=== PATIENT | female | born 1965 | race American Indian/Alaskan Native ===

== ENCOUNTER 2020-05-07 15:44 | Emergency (ER) | payer SELFPAY ==
--- NOTE | 2020-05-07 18:28 | Event Note ---
ED Screening Note ED Screening Note: pt presents with left flank pain that began earlier today states she does lift heavy at work she denies any n/v/d, CP, SOB, leg swelling hx of HTN and has not taken medication in 2 months allergy: penicillin went through menopause This initial assessment/diagnostic orders/clinical plan/treatment(s) is/are subject to change based on patients health status, clinical progression and re- assessment by fellow clinical providers in the ED. Further treatment and workup at subsequent clinical providers discretion. Patient/guardian urged not to elope from the ED as their condition may be serious if not clinically assessed and managed. Initial orders include: labs, CT, EKG htn urgency work up flank pain work up
[2020-05-07 19:33] LABS: Bilirubin,Urine NEG (Negative); Blood,Urine NEG (Negative); Color,Urine Yellow (Yellow); Mucus,Urine FEW /HPF; Protein,Urine <15 mg/dL mg/dL (Negative); Urobilinogen,Urine < 2.0 mg/dL (<2.0)
[2020-05-07 19:53] LABS: Basophils % (Auto) 0.3 % (0.0-1.8); Eosinophils # (Auto) 0.1 K/mm3 (0.0-0.4); Eosinophils % (Auto) 0.9 % (0.0-4.3); Hematocrit 42.3 % (30.3-42.9); Hemoglobin 13.4 gm/dl (10.1-14.3); Lymphocytes # (Auto) 2.4 K/mm3 (1.2-5.4); Lymphocytes % (Auto) 35.8 % (13.4-35.0); Mean Corpuscular HGB Conc 32 % (30-34); Mean Corpuscular Volume 83 fl (79-97); Monocytes # (Auto) 0.6 K/mm3 (0.0-0.8); Monocytes % (Auto) 8.2 % (0.0-7.3); Platelet Count 274 K/mm3 (140-440); Red Blood Count 5.07 M/mm3 (3.65-5.03); Red Cell Distribution Width 14.1 % (13.2-15.2)
[2020-05-07 20:27] LABS: Alanine Aminotransferase 18 units/L (7-56); Albumin 4.5 g/dL (3.9-5); BUN/Creatinine Ratio 20; Blood Urea Nitrogen 14 mg/dL (7-17); Calcium 9.5 mg/dL (8.4-10.2); Hemolysis Index 9
[2020-05-07] MEDS ORDERED: dexAMETHasone 20 MG/5 ML VIAL IM ONE (20:34)
[2020-05-07] MEDS ORDERED: hydrALAZINE 25 MG TAB PO ONE (20:34)
[2020-05-07] MEDS ORDERED: KETOROLAC 30 MG/1 ML INJ IM ONE (20:34)
[2020-05-07] MEDS ORDERED: hydrALAZINE 20 MG/1 ML INJ IM ONE (20:35)
--- NOTE | 2020-05-07 20:52 | Cat Scan Report ---
CT ABDOMEN AND PELVIS WITHOUT CONTRAST INDICATION: left flank pain. TECHNIQUE: Axial CT images were obtained through the abdomen and pelvis without IV contrast. All CT scans at [facility] are performed using CT dose reduction for ALARA by means of automated exposure control. COMPARISON: None available. FINDINGS: LOWER CHEST: No significant abnormality. LIVER: No significant abnormality. GALLBLADDER: No significant abnormality. BILE DUCTS: No significant abnormality. PANCREAS: No significant abnormality. SPLEEN: No significant abnormality. ADRENALS: No significant abnormality. RIGHT KIDNEY and URETER: No significant abnormality. LEFT KIDNEY and URETER: No significant abnormality. STOMACH and SMALL BOWEL: No significant abnormality. COLON: Mild colonic diverticulosis without CT evidence for diverticulitis. APPENDIX: No significant abnormality. PERITONEUM: No free fluid. No free air. No fluid collection. LYMPH NODES: No significant adenopathy. AORTA and ARTERIES: No significant abnormality. IVC and VEINS: No significant abnormality. URINARY BLADDER: No significant abnormality. REPRODUCTIVE ORGANS: No significant abnormality. ADDITIONAL FINDINGS: None. SKELETAL SYSTEM: No significant abnormality. IMPRESSION: 1. No urinary tract calculi or hydronephrosis. 2. Mild colonic diverticulosis without CT evidence for diverticulitis. Signer Name: Donis Sandoval MD Signed: 05/07/2020 8:47 PM Workstation Name: [id number]
--- NOTE | 2020-05-07 22:28 | Emergency Department Report ---
ED Back Pain/Injury HPI - General Chief Complaint: Chest Pain Stated Complaint: CP/HBP Time Seen by Provider: 05/07/20 18:23 Source: patient Limitations: No Limitations - History of Present Illness Initial Comments: Patient is a 55-year-old -[place] female with history of hypertension and noncompliant with her medications, having not taken her medications in over 3 months presented to the ED with complaint of acute onset persistent left flank pain that radiates to the lower back with intermittent nausea for the last 12 hours. Patient states that her job entails heavy lifting and suspected that the pain may have been from heavy lifting and bending at the same time. Patient states that when the pain started she was at work and it got worse at home. Patient denies dysuria, dizziness, syncope, fall, chest pain, shortness of breath, nausea, vomiting, abdominal pain, vaginal bleeding, vaginal discharge, urinary frequency and urgency, cough, fever, chills, numbness and tingling or weakness of upper and lower extremities bilaterally, urinary or bowel incontinen ce or saddle paresthesia. MD Complaint: back pain (lower back pain), other (left flank pain; elevated Blood pressure) -: Sudden (2), hour(s) (12) Similar Symptoms Previously: No Place: home Radiation: abdomen Severity: moderate Severity scale (0 -10): 5 Quality: sharp, aching Consistency: constant Improves With: none Worsens With: movement Context: while lifting (at work), turning/twisting Associated Symptoms: denies other symptoms, abdominal pain (Left flank pain), loss of appetite, malaise, nausea/vomiting. denies: confusion, weakness, chest pain, numbness, difficulty walking, cough, difficulty urinating, diaphoresis, incontinence, constipation, headaches, rash, shortness of breath, syncope, other - Related Data Previous Rx's Medication Instructions Recorded Last Taken Type Cyclobenzaprine [Flexeril] 10 mg PO QHS PRN #21 tablet 05/07/20 Unknown Rx Lisinopril/Hydrochlorothiazide 1 each PO DAILY #30 tablet 05/07/20 Unknown Rx [Zestoretic 20-12.5 mg] Naproxen 500 mg PO Q12H PRN #30 tablet 05/07/20 Unknown Rx amLODIPine 10 mg PO DAILY #30 tab 05/07/20 Unknown Rx Allergies Allergy/AdvReac Type Severity Reaction Status Date / Time penicillin V Allergy Seizure Verified 05/07/20 16:00 ED Review of Systems ROS: Stated complaint: CP/HBP Other details as noted in HPI Constitutional: denies: chills, fever Eyes: denies: eye pain, eye discharge, vision change ENT: denies: ear pain, throat pain Respiratory: denies: cough, shortness of breath, wheezing Cardiovascular: denies: chest pain, palpitations Endocrine: no symptoms reported Gastrointestinal: abdominal pain (left flank pain). denies: nausea, vomiting, diarrhea Genitourinary: denies: urgency, dysuria, discharge Musculoskeletal: back pain (lower back pain). denies: joint swelling, arthralgia Skin: denies: rash, lesions Neurological: denies: headache, weakness, paresthesias Psychiatric: denies: anxiety, depression Hematological/Lymphatic: denies: easy bleeding, easy bruising ED Past Medical Hx - Past Medical History Hx Hypertension: Yes - Surgical History Additional Surgical History: HYSTO/ CARPAL RIGHT HAND - Social History Smoking Status: Never Smoker Substance Use Type: None - Medications Home Medications: Home Medications Medication Instructions Recorded Confirmed Last Taken Type Cyclobenzaprine [Flexeril] 10 mg PO QHS PRN #21 tablet 05/07/20 Unknown Rx Lisinopril/Hydrochlorothiazide 1 each PO DAILY #30 tablet 05/07/20 Unknown Rx [Zestoretic 20-12.5 mg] Naproxen 500 mg PO Q12H PRN #30 tablet 05/07/20 Unknown Rx amLODIPine 10 mg PO DAILY #30 tab 05/07/20 Unknown Rx ED Physical Exam - General Limitations: No Limitations General appearance: alert, in no apparent distress - Head Head exam: Present: atraumatic, normocephalic, normal inspection - Eye Eye exam: Present: normal appearance, PERRL, EOMI Pupils: Present: normal accommodation - ENT ENT exam: Present: normal exam, normal orophraynx, mucous membranes moist, TM's normal bilaterally, normal external ear exam - Neck Neck exam: Present: normal inspection, full ROM - Respiratory Respiratory exam: Present: normal lung sounds bilaterally. Absent: respiratory distress, wheezes, rales, chest wall tenderness - Cardiovascular Cardiovascular Exam: Present: regular rate, normal rhythm, normal heart sounds. Absent: systolic murmur, diastolic murmur, rubs, gallop - GI/Abdominal GI/Abdominal exam: Present: soft, normal bowel sounds. Absent: tenderness, guarding, hyperactive bowel sounds - Extremities Exam Extremities exam: Present: normal inspection, full ROM, normal capillary refill - Back Exam Back exam: Present: normal inspection, full ROM, tenderness (Palpable lumbosacral paraspinal musculoskeletal tenderness), muscle spasm, paraspinal tenderness. Absent: CVA tenderness (R), CVA tenderness (L), vertebral tenderness - Neurological Exam Neurological exam: Present: alert, oriented X3, CN II-XII intact, normal gait, reflexes normal - Psychiatric Psychiatric exam: Present: normal affect, normal mood - Skin Skin exam: Present: warm, dry, intact, normal color. Absent: rash ED Course Vital Signs 05/07/20 05/07/20 05/07/20 16:04 18:27 21:03 Temperature 97.8 F Pulse Rate 88 Respiratory 20 18 Rate Blood Pressure Blood Pressure 202/111 [Left] Blood Pressure 195/119 [Right] O2 Sat by Pulse 99 Oximetry 05/07/20 21:04 Temperature Pulse Rate 89 Respiratory Rate Blood Pressure 142/82 Blood Pressure [Left] Blood Pressure [Right] O2 Sat by Pulse Oximetry ED Medical Decision Making - Lab Data Result diagrams: 05/07/20 19:04 05/07/20 19:04 - Radiology Data Radiology results: report reviewed, image [place] [address] Cat Scan Report Signed Patient: KRISTA HERNANDEZ MR#: [id number] : 1965 Acct:[id number] Age/Sex: 55 / F ADM Date: 05/07/20 Loc: ED Attending Dr: Ordering Physician: MIROSLAVA SIERRA Date of Service: 05/07/20 Procedure(s): CT abdomen pelvis wo con Accession Number(s): [id number] cc: MIROSLAVA SIERRA CT ABDOMEN AND PELVIS WITHOUT CONTRAST INDICATION: left flank pain. TECHNIQUE: Axial CT images were obtained through the abdomen and pelvis without IV contrast. All CT scans at this location are performed using CT dose reduction for ALARA by means of automated exposure contr ol. COMPARISON: None available. FINDINGS: LOWER CHEST: No significant abnormality. LIVER: No significant abnormality. GALLBLADDER: No significant abnormality. BILE DUCTS: No significant abnormality. PANCREAS: No significant abnormality. SPLEEN: No significant abnormality. ADRENALS: No significant abnormality. RIGHT KIDNEY and URETER: No significant abnormality. LEFT KIDNEY and URETER: No significant abnormality. STOMACH and SMALL BOWEL: No significant abnormality. COLON: Mild colonic diverticulosis without CT evidence for diverticulitis. APPENDIX: No significant abnormality. PERITONEUM: No free fluid. No free air. No fluid collection. LYMPH NODES: No significant adenopathy. AORTA and ARTERIES: No significant abnormality. IVC and VEINS: No significant abnormality. URINARY BLADDER: No significant abnormality. REPRODUCTIVE ORGANS: No significant abnormality. ADDITIONAL FINDINGS: None. SKELETAL SYSTEM: No significant abnormality. IMPRESSION: 1. No urinary tract calculi or hydronephrosis. 2. Mild colonic diverticulosis without CT evidence for diverticulitis. Signer Name: Donis Sandoval MD Signed: 05/07/2020 8:47 PM Workstation Name: [id number] Transcribed By: TL Dictated By: Donis Sandoval MD Electronically Authenticated By: Donis Sandoval MD Signed Date/Time: 05/07/202046 DD/ 44 TD/TT: - Medical Decision Making This is a 55-year-old -[place] female with history of hypertension and noncompliant with her medications, having not taken her medications in over 3 months presented to the ED with complaint of acute onset persistent left flank pain that radiates to the lower back with intermittent nausea for the last 12 h ours. Patient states that her job entails heavy lifting and suspected that the pain may have been from heavy lifting and bending at the same time. Patient states that when the pain started she was at work and it got worse at home. In the ED, patient is alert and oriented x3 and is not in distress but hypertensive in triage. Lab test results were reviewed and are all nonactionable including initial and repeat troponin levels. Abdomen pelvis CT scan without contrast showed no acute abnormalities except for mild diverticulosis without any CT evidence of diverticulitis. Patient was treated in the ED for pain and also given blood pressure medication. On reevaluation, patient's pain is well controlled with medications, hypertension also resolved with medications. Patient was discharged home with a refill on her blood pressure medications, pain medications and muscle relaxants and was advised to follow-up with her primary care physician in 5 to 7 days for reevaluation or return to the ED immediately if symptoms get worse. - Differential Diagnosis Muscle spasm; Muscle strain; Hypertension; Anxiety; UTI; Kidney stones Critical care attestation.: If time is entered above; I have spent that time in minutes in the direct care of this critically ill patient, excluding procedure time. ED Disposition Clinical Impression: Spasm of muscle of lower back, Uncontrolled stage 2 hypertension Acute low back pain Qualifiers: Back pain laterality: left Sciatica presence: without sciatica Qualified Code(s): M54.5 - Low back pain Disposition: TO HOME OR SELFCARE Is pt being admited?: No Does the pt Need Aspirin: No Condition: Stable Instructions: Hypertension (ED), Muscle Spasm (ED), Acute Low Back Pain (ED) Additional Instructions: All lab test results are unremarkable. Therefore take medication with food, drink plenty of fluids and follow-up with your primary care physician in 5 to 7 days for reevaluation. Return to the ED immediately if symptoms get worse. Prescriptions: Cyclobenzaprine [Flexeril] 10 mg PO QHS PRN #21 tablet PRN Reason: Muscle Spasm amLODIPine 10 mg PO DAILY #30 tab Naproxen 500 mg PO Q12H PRN #30 tablet PRN Reason: Pain , Severe (7-10) Lisinopril/Hydrochlorothiazide [Zestoretic 20-12.5 mg] 1 each PO DAILY #30 tablet Referrals: [facility] [Outside] - 7-10 days [facility] [Provider Group] - 7-10 days Time of Disposition: 22:35
[2020-05-07 23:40] VITALS: BP 139/74
== END 2020-05-07 23:41 | disposition home or self-care (01) ==
LOC: ED 15:44
DX: M62.830 Muscle spasm of back (principal); I10 Essential (primary) hypertension; M54.5 Low back pain
CPT/HCPCS: 36415; 74176; 80053; 81001; 84484; 85025; 93005; 96372; 99284; J0360; J1100; J1885